=== PATIENT | male | born 1935 | race Caucasian/White ===

== ENCOUNTER 2024-09-25 10:16 | Outpatient (CLI) | payer MEDICARE, OTHER ==
[2024-09-25 11:11] LABS: BASOPHILS % (AUTO) 0.9 % (0-1); EOSINOPHILS # (AUTO) 0.2 X10'3 (0-0.9); EOSINOPHILS % (AUTO) 4.3 % (0-6); HEMATOCRIT 41.2 % (42.0-52.0); HEMOGLOBIN 13.3 g/dl (14.0-17.9); LYMPHOCYTES # (AUTO) 1.1 X10'3 (1.1-4.8); LYMPHOCYTES % (AUTO) 21.7 % (21-51); MEAN CORPUSCULAR HGB CONC 32.3 g/dL (33.0-36.5); MEAN CORPUSCULAR VOLUME 95.8 FL (78-98); MONOCYTES # (AUTO) 0.7 X10'3 (0-0.9); MONOCYTES % (AUTO) 13.9 % (2-12); NEUTROPHILS # (AUTO) 3.1 X10'3 (1.8-7.7); NEUTROPHILS % (AUTO) 59.2 % (42-75); PLATELET COUNT 244 X10'3 (140-440); RED CELL DISTRIBUTION WIDTH 15.2 % (11.5-14.5); WHITE BLOOD COUNT 5.2 X10'3 (4.5-11.0)
[2024-09-25 11:21] LABS: APTT 28 SECONDS (22-32); INR 1.1 INR; PROTHROMBIN TIME 11.1 SECONDS (9.0-12.0)
[2024-09-25 11:27] LABS: ANION GAP 8 (8-16); BLOOD UREA NITROGEN 18 MG/DL (7-18); BUN/CREATININE RATIO 13.5 (10.0-20.0); CALCIUM 8.4 MG/DL (8.5-10.1); CHLORIDE 103 MMOL/L (99-107); CHOL/HDL RATIO 2.8 (0.00-4.99); CHOLESTEROL 139 MG/DL (0-200); CREATININE 1.33 MG/DL (0.60-1.10); GLUCOSE 78 MG/DL (70-104); HDL CHOLESTEROL 50 MG/DL (35-60); LDL CHOLESTEROL 81 MG/DL (50-100); POTASSIUM 4.9 MMOL/L (3.5-5.1); SODIUM 136 MMOL/L (135-145); TOTAL CARBON DIOXIDE 24.9 MMOL/L (24-32); TRIGLYCERIDES 57 MG/DL (20-135); eGFR 51 ML/MIN
== END 2024-09-25 23:59 | disposition home or self-care (01) ==
LOC: LAB 10:16
PROVIDERS: ATTEND Internal Medicine Interventional Cardiology
DX: I10 Essential (primary) hypertension (principal); E78.5 Hyperlipidemia, unspecified; I48.0 Paroxysmal atrial fibrillation
CPT/HCPCS: 36415; 80048; 80061; 85025; 85610; 85730

== ENCOUNTER 2024-10-01 11:32 | Day surgery (SDC) | payer MEDICARE, OTHER ==
[2024-10-01] VITALS (10 sets, daily range): BP systolic 108–139; BP diastolic 47–84; PULSE 72–89; RESP 16–22; O2SAT 94–95
[~2024-10-01] VITALS: Ht 177.8 cm; Wt 77.3 kg
[2024-10-01] MEDS ORDERED: LORazepam 0.5 MG tablet PO PRN (12:00)
[2024-10-01] MEDS ORDERED: SIMV-42 PO (12:04)
[2024-10-01] MEDS ORDERED: METO-395 PO (12:04)
[2024-10-01] MEDS ORDERED: ALBU8HFA INH (12:04)
[2024-10-01] MEDS ORDERED: FLUT1DIS20 INH (12:04)
[2024-10-01] MEDS ORDERED: OMEP20CA16 PO (12:04)
[2024-10-01] MEDS ORDERED: SACU1TAB PO (12:04)
[2024-10-01] MEDS ORDERED: APIX2.5T PO (12:04)
[2024-10-01] MEDS: normal saline 1,000 ML IV SCH (12:58)
[2024-10-01] MEDS: diphenhydrAMINE 25mg capsule PO PRN (12:58)
[2024-10-01] MEDS ORDERED: fentaNYL/PF 50MCG/1 ML 2ML syringe ONE (14:04)
[2024-10-01] MEDS ORDERED: LIDOcaine 1% (10mg/ml) 2ml vial ONE (14:04)
[2024-10-01] MEDS ORDERED: verapamil 2.5 mg/ml inj IV ONE (14:04)
[2024-10-01] MEDS ORDERED: nitroGLYCERIN 500mcg/5mL D5W 5 ML IV ONE (14:05)
[2024-10-01] MEDS ORDERED: heparin 1,000unit/ml 10ml vial 10 ML ONE (14:05)
[2024-10-01] MEDS ORDERED: iohexol 350MG/ML 100ml bottle IV ONE (14:05)
[2024-10-01] MEDS ORDERED: midazolam 1 mg/ML 2ml injection ONE (14:05)
[2024-10-01 15:05] LABS: ISTAT HGB ART 12.9 g/dl (14.0-17.9); ISTAT Hct ART 38 %PCV (42-52); ISTAT O2 SATURATION ARTERIAL 94 % (95-98); ISTAT SOURCE ART
[2024-10-01] MEDS ORDERED: HYDROcodone/acetaminophen 5mg/325mg tablet PO PRN (15:45)
[2024-10-01] MEDS ORDERED: HYDROcodone/acetaminophen 10/325mg tab PO PRN (15:45)
[2024-10-02 07:50] LABS: ISTAT HGB MIX 12.6 g/dl (14.0-17.9); ISTAT Hct MIX 37 %PCV (42-52); ISTAT O2 SATURATION MIX VENOUS 68 % (60-80); ISTAT SOURCE VEN
== END 2024-10-01 17:35 | disposition home or self-care (01) ==
LOC: SSTAY O 11:32
PROVIDERS: ATTEND Student in an Organized Health Care Education/Training Program
DX: I35.0 Nonrheumatic aortic (valve) stenosis (principal); I25.10 Atherosclerotic heart disease of native coronary artery without angina pectoris; I45.10 Unspecified right bundle-branch block; R94.31 Abnormal electrocardiogram [ECG] [EKG]; I13.0 Hypertensive heart and chronic kidney disease with heart failure and stage 1 through stage 4 chronic kidney disease, or unspecified chronic kidney disease; N18.9 Chronic kidney disease, unspecified; I50.9 Heart failure, unspecified; E78.00 Pure hypercholesterolemia, unspecified; I48.0 Paroxysmal atrial fibrillation; Z79.01 Long term (current) use of anticoagulants; Z79.899 Other long term (current) drug therapy; Z95.0 Presence of cardiac pacemaker
CPT/HCPCS: 82803; 85014; 93005; 93456; 99152; A6258; A6402; C1751; C1894; J1644; J2003; J2250; J3010; J3490; J7030; Q0163; Q9967; Z7610; 99153; C1769

== ENCOUNTER 2024-10-22 10:21 | Outpatient (CLI) | payer MEDICARE, OTHER ==
[~2024-10-22 10:21] MED LIST: ALBU8HFA INH; APIX2.5T PO; FLUT1DIS20 INH; METO-395 PO; OMEP20CA16 PO; SACU1TAB PO; SIMV-42 PO
[2024-10-22 10:54] LABS: BASOPHILS % (AUTO) 0.9 % (0-1); EOSINOPHILS # (AUTO) 0.3 X10'3 (0-0.9); EOSINOPHILS % (AUTO) 5.3 % (0-6); HEMATOCRIT 40.4 % (42.0-52.0); HEMOGLOBIN 13.3 g/dl (14.0-17.9); LYMPHOCYTES # (AUTO) 0.8 X10'3 (1.1-4.8); LYMPHOCYTES % (AUTO) 16.8 % (21-51); MEAN CORPUSCULAR HEMOGLOBIN 31.5 PG (27.0-31.0); MEAN CORPUSCULAR HGB CONC 32.9 g/dL (33.0-36.5); MEAN CORPUSCULAR VOLUME 95.8 FL (78-98); MEAN PLATELET VOLUME 8.6 FL (7.4-10.4); MONOCYTES # (AUTO) 0.8 X10'3 (0-0.9); MONOCYTES % (AUTO) 16.7 % (2-12); NEUTROPHILS % (AUTO) 60.3 % (42-75); PLATELET COUNT 216 X10'3 (140-440); RED BLOOD COUNT 4.22 X10'6 (4.70-6.10); RED CELL DISTRIBUTION WIDTH 15.2 % (11.5-14.5)
[2024-10-22 11:22] LABS: APTT 27 SECONDS (22-32); INR 1.1 INR; PROTHROMBIN TIME 11.3 SECONDS (9.0-12.0)
[2024-10-22 11:33] LABS: PLATELET ESTIMATE NORMAL; TOTAL CELLS COUNTED 100
[2024-10-22 11:39] LABS: ALANINE AMINOTRANSFERASE 18 U/L (12-78); ALBUMIN/GLOBULIN RATIO 0.7 (1.1-1.5); ALKALINE PHOSPHATASE 59 IU/L (46-116); ANION GAP 4 (8-16); ASPARTATE AMINO TRANSFERASE 20 U/L (10-37); BILIRUBIN,TOTAL 0.5 MG/DL (0.1-1.0); BLOOD UREA NITROGEN 24 MG/DL (7-18); BUN/CREATININE RATIO 15.7 (10.0-20.0); CALCIUM 8.5 MG/DL (8.5-10.1); CHLORIDE 106 MMOL/L (99-107); CREATININE 1.53 MG/DL (0.60-1.10); GLUCOSE 89 MG/DL (70-104); POTASSIUM 4.7 MMOL/L (3.5-5.1); PRO BRAIN NATRIURETIC PEPTIDE 10371 PG/ML (0-450); SODIUM 140 MMOL/L (135-145); TOTAL CARBON DIOXIDE 29.6 MMOL/L (24-32); TOTAL PROTEIN 7.1 G/DL (6.4-8.2); eGFR 43 ML/MIN
[2024-10-22] MEDS ORDERED: IODIXANOL 320 MG/ML INFUS..BTL 100ML IV ONE (11:40)
== END 2024-10-22 23:59 | disposition home or self-care (01) ==
LOC: RAD 10:21
PROVIDERS: ATTEND Internal Medicine Cardiovascular Disease
DX: J90 Pleural effusion, not elsewhere classified (principal); N26.1 Atrophy of kidney (terminal); M47.817 Spondylosis without myelopathy or radiculopathy, lumbosacral region; I35.0 Nonrheumatic aortic (valve) stenosis; R06.02 Shortness of breath; I65.29 Occlusion and stenosis of unspecified carotid artery; Z96.641 Presence of right artificial hip joint
CPT/HCPCS: 36415; 71046; 71275; 74174; 75572; 80053; 83880; 85007; 85025; 85610; 85730; Q9967